=== PATIENT | female | born 1975 | race African-American/Black ===

== ENCOUNTER 2025-02-22 08:32 | Emergency (ER) | payer MEDICAID ==
[~2025-02-22] VITALS: Ht 175.3 cm; Wt 76.0 kg
[2025-02-22 08:38] VITALS: O2SAT 97
[2025-02-22 09:36] VITALS: BP 137/90; PULSE 75; RESP 16; TEMP 36.9; O2SAT 99
[2025-02-22] MEDS: LIDOCAINE 5% PATCH TOP ONE (09:42)
[2025-02-22] MEDS: ACETAMINOPHEN 325MG TABLET PO ONE (09:42)
== END 2025-02-22 09:50 | disposition home or self-care (01) ==
LOC: ER 08:32
DX: S46.912A Strain of unspecified muscle, fascia and tendon at shoulder and upper arm level, left arm, initial encounter (principal); X50.9XXA Other and unspecified overexertion or strenuous movements or postures, initial encounter; Y93.89 Activity, other specified; Y92.89 Other specified places as the place of occurrence of the external cause; Y99.8 Other external cause status
CPT/HCPCS: 99283